=== PATIENT | male | born 1950 | race Caucasian/White ===

== ENCOUNTER 2017-04-17 20:30 | Outpatient (CLI) | payer MEDICARE | END 2017-04-17 20:31 | disposition home or self-care (01) | LOC: SLEEPLAB 20:30 | PROVIDERS: ATTEND Family Medicine | DX: G47.33 Obstructive sleep apnea (adult) (pediatric) (principal); R53.83 Other fatigue | CPT/HCPCS: 95811 ==

== ENCOUNTER 2017-07-29 12:31 | Outpatient (CLI) | payer MEDICARE | END 2017-07-29 12:32 | disposition home or self-care (01) | LOC: ULT 12:31 | PROVIDERS: ATTEND Internal Medicine | DX: G47.33 Obstructive sleep apnea (adult) (pediatric) (principal); I08.1 Rheumatic disorders of both mitral and tricuspid valves | CPT/HCPCS: 93306 ==

== ENCOUNTER 2020-02-18 07:27 | Outpatient (CLI) | payer MEDICARE, OTHER ==
[2020-02-18 11:21] LABS: INR-International Normal Ratio 0.9; Prothrombin Time 12.9 sec (12.0-14.7)
[2020-02-18 11:22] LABS: PTT 34.2 sec (22.9-36.1)
[2020-02-18 11:31] LABS: Hemoglobin 15.1 g/dL (14.0-18.0); Mean Corpuscular HGB CONC 32.7 g/dL (32.0-36.0); Mean Corpuscular Hemoglobin 29.1 pg (27.0-31.0); Mean Platelet Volume 8.1 fL (7.4-10.4); Platelet Count 216 thou/uL (130-400); Red Blood Cell (RBC) Count 5.18 mill/uL (4.70-6.10)
[2020-02-18 11:38] LABS: Anion Gap 14 mmol/L (10-20); BUN (Urea Nitrogen) 18 mg/dL (8.4-25.7); Calc. Creatinine Clearance 0 mL/min (70-130); Calcium 9.4 mg/dL (7.8-10.44); Carbon Dioxide 24 mmol/L (23-31); Chloride 103 mmol/L (98-107); Estimated GFR-MDRD 74; Glucose 137 mg/dL (80-115); Potassium 4.3 mmol/L (3.5-5.1); Sodium 137 mmol/L (136-145)
[2020-02-18 17:32] LABS: SARS-CoV-2 MS2 Positive; SARS-CoV-2 N Gene Negative; SARS-CoV-2 S Gene Negative; SARS-CoV-2 by NAA Not Detected (NotDetected); SARS-CoV-2 orf1ab Negative
--- NOTE | 2020-02-18 18:05 | EKG ---
Test Reason : PREOP Blood Pressure : / mmHG Vent. Rate : 065 BPM Atrial Rate : 065 BPM P-R Int : 166 ms QRS Dur : 094 ms QT Int : 400 ms P-R-T Axes : 059 022 046 degrees QTc Int : 416 ms Normal sinus rhythm Normal ECG Confirmed by DR. Nimo CARLTON (3) on 02/18/2020 6:04:57 PM Referred By: RADHA Confirmed By:DR. Nimo CARLTON
== END 2020-02-18 07:28 | disposition home or self-care (01) ==
LOC: LABBT 07:27
PROVIDERS: ATTEND Surgery
DX: Z01.818 Encounter for other preprocedural examination (principal); M48.062 Spinal stenosis, lumbar region with neurogenic claudication; M54.16 Radiculopathy, lumbar region; Z20.828 Contact with and (suspected) exposure to other viral communicable diseases
CPT/HCPCS: 80048; 85027; 85610; 85730; 93005; U0003; 87635; 93010

== ENCOUNTER 2020-02-23 10:01 | Day surgery (SDC) | payer MEDICARE ==
[2020-02-23] MEDS ORDERED: Thrombin 5000 UNITS/5 ML VIAL ONE ×2 (10:41→14:05)
[2020-02-23] MEDS ORDERED: Fentanyl 100 MCG/2 ML VIAL ONE ×2 (11:51→15:16)
[2020-02-23] MEDS ORDERED: Lidocaine 1% PF 5 ML VIAL ONE (12:32)
[2020-02-23] MEDS ORDERED: PROPOFOL 200 MG/20 ML VIAL ONE (12:32)
[2020-02-23] MEDS ORDERED: Rocuronium Bromide 10 MG/ML (10ML VIAL) ONE (12:32)
[2020-02-23] MEDS ORDERED: Dexamethasone 20 MG/5 ML VIAL ONE (12:32)
[2020-02-23] MEDS ORDERED: HYDROcodone/Acetaminophen 7.5/325 mg Tablet PO PRN (15:08)
[2020-02-23] MEDS ORDERED: Milk Of Magnesia 30 ML UDCUP PO PRN (15:08)
[2020-02-23] MEDS ORDERED: Morphine 2 MG/ML VIAL SLOW IVP PRN (15:08)
[2020-02-23] MEDS ORDERED: Ondansetron PF 4 MG/2 ML Vial IVP PRN (15:08)
[2020-02-23] MEDS ORDERED: Bisacodyl 10 MG SUPP PR PRN (15:08)
[2020-02-23] MEDS ORDERED: Promethazine HCl 25 MG/ML VIAL IM PRN ×2 (15:08→15:14)
[2020-02-23] MEDS ORDERED: Mag-Al 1200 mg/1200 mg/30 ML UDCUP PO PRN (15:08)
[2020-02-23] MEDS ORDERED: diphenhydrAMINE 25 MG CAP PO PRN (15:08)
[2020-02-23] MEDS ORDERED: Ondansetron HCl/PF 4 MG/2 ML Vial IVP PRN (15:14)
[2020-02-23] MEDS ORDERED: Meperidine HCl/PF 25 MG/ML VIAL SLOW IVP PRN (15:14)
[2020-02-23] MEDS ORDERED: Morphine Sulfate 2 MG/ML SYRINGE SLOW IVP PRN (15:14)
[2020-02-23] MEDS ORDERED: Ketorolac Tromethamine 30 MG/ML VIAL IVP PRN (15:14)
[2020-02-23] MEDS ORDERED: Promethazine HCl 25 MG/ML VIAL SLOW IVP PRN (15:14)
[2020-02-23] MEDS ORDERED: PACU-Morphine 4MG/ML VIAL SLOW IVP PRN (15:14)
[2020-02-23] MEDS ORDERED: HYDROmorphone 2 MG/ML VIAL SLOW IVP PRN (15:14)
[2020-02-23] MEDS ORDERED: HYDROmorphone 2 MG/ML VIAL ONE (15:36)
[2020-02-23] MEDS: tiZANidine HCl 4 MG TAB PO PRN (19:14)
[2020-02-23 20:05] VITALS: BMI 30.2
[2020-02-23] MEDS: Sodium Chloride 0.9% 1,000 ML IV SCH (20:06)
[2020-02-23] MEDS: CEFAZOLIN 2 GM in Premix Bag 1 BAG IVPB SCH (20:09)
[2020-02-23] MEDS: Gabapentin 300 MG CAP PO SCH (20:09)
[2020-02-23] MEDS: Tamsulosin HCl 0.4 MG CAP PO SCH (20:09)
[2020-02-23] MEDS ORDERED: FLU VACC QS2020-21(65YR UP)/PF 240 MCG/0.7 ML SYRINGE IM ONE (21:00)
[2020-02-24] MEDS: CEFAZOLIN 2 GM in Premix Bag 1 BAG IVPB SCH (01:18)
[2020-02-24] MEDS: Acetaminophen/Codeine 30-300mg Tablet PO PRN ×3 (01:18→20:40)
[2020-02-24] MEDS: traMADol HCl 50 MG TAB PO PRN ×2 (01:18→20:41)
[2020-02-24] MEDS: Sodium Chloride 0.9% 1,000 ML IV SCH ×2 (07:50→23:43)
[2020-02-24] MEDS: metFORMIN 500 MG TAB PO SCH ×2 (08:37→17:46)
[2020-02-24] MEDS: Cholecalciferol 1,000 UNITS (25 MCG) TAB PO SCH (08:37)
[2020-02-24 08:59] LABS: #Lymphocytes 1.6 thou/uL (1.20-3.40); #Monocytes 1.1 thou/uL (0.11-0.59); #Neutrophils 7.9 thou/uL (1.40-6.50); %Basophils 0.2 % (0.0-1.0); %Eosinophils 0.3 % (0.0-10.0); %Lymphocytes 14.6 % (21.0-51.0); %Monocytes 10.4 % (0.0-10.0); %Neutrophils 74.4 % (42.0-75.0); Hemoglobin 11.4 g/dL (14.0-18.0); Mean Corpuscular HGB CONC 33.3 g/dL (32.0-36.0); Mean Corpuscular Hemoglobin 30.2 pg (27.0-31.0); Mean Corpuscular Volume 90.6 fL (78.0-98.0); Mean Platelet Volume 7.1 fL (7.4-10.4); Platelet Count 170 thou/uL (130-400); RBC Distribution Width 11.8 % (11.5-14.5); Red Blood Cell (RBC) Count 3.76 mill/uL (4.70-6.10); White Blood Cell (WBC) Count 10.6 thou/uL (4.8-10.8)
--- NOTE | 2020-02-24 13:50 | PRG ---
DATE OF SERVICE: 02/24/2020 Mr. Downs is doing well with resolution in his leg pain. He has ambulated to his bedroom door, but has not been outside of the hospital room. He has good strength and his hemoglobin is 11. He had low blood pressure. Does respond well to fluids. We will mobilize him today and plan for discharge likely tomorrow. Job ID: [id number]
[2020-02-24] MEDS: tiZANidine HCl 4 MG TAB PO PRN (15:37)
[2020-02-24] MEDS: Acetaminophen 325 MG TAB PO PRN (16:21)
[2020-02-24] MEDS: Tamsulosin HCl 0.4 MG CAP PO SCH (20:34)
[2020-02-24] MEDS: Gabapentin 300 MG CAP PO SCH (20:34)
[2020-02-25] MEDS: traMADol HCl 50 MG TAB PO PRN (03:30)
[2020-02-25] MEDS: Acetaminophen/Codeine 30-300mg Tablet PO PRN (03:30)
--- NOTE | 2020-02-25 08:02 | OP ---
DATE OF PROCEDURE: 02/23/2020 COUPON REDEMPTION CLERK: Shirley Preston PA-C PREPROCEDURE DIAGNOSIS: Multilevel lumbar stenosis with neurogenic claudication. POSTPROCEDURE DIAGNOSIS: Multilevel lumbar stenosis with neurogenic claudication. PROCEDURES PERFORMED: 1. L1-L2, L2-L3, L3-L4, L4-L5 laminectomies, partial facetectomies, foraminotomies. 2. Left L5-S1 hemilaminotomy, foraminotomy. DESCRIPTION OF PROCEDURE: After informed consent was obtained from the patient, the patient was brought to the OR. Proper patient, pause, and identification were carried out. He was placed under excellent general endotracheal anesthesia and positioned prone on the OR table. All appropriate points were padded. We identified the L1 through S1 dorsal spines and lamina. A linear quita was made over this region. This area was sterilely cleansed, prepared, and draped. Proper patient, pause, and identification were carried out. We then performed L1 through L5 laminectomies, partial facetectomies, foraminotomies, and left L5-S1 hemilaminotomy and foraminotomy with excellent decompression of the common dural tube and nerve roots. Copious irrigation occurred throughout as did maximizing hemostasis. The wound was then closed in anatomic layers following sprinkling of vancomycin powder. The patient then emerged from anesthesia. Job ID: [id number]
[2020-02-25] MEDS: Cholecalciferol 1,000 UNITS (25 MCG) TAB PO SCH (08:11)
[2020-02-25] MEDS: Acetaminophen 325 MG TAB PO PRN ×2 (08:11→21:23)
[2020-02-25] MEDS: metFORMIN 500 MG TAB PO SCH ×2 (08:11→17:17)
--- NOTE | 2020-02-25 09:10 | PRG ---
DATE OF SERVICE: 02/25/2020 SUBJECTIVE: Mr. Downs is postoperative day #2 after L1 through L5 laminectomies, partial facetectomies, and foraminotomies, and left L5-S1 hemilaminotomy and foraminotomy. The patient continues to endorse low back pain and spasm, however he states that he was able to rest more last night and is more comfortable than yesterday. He reports improvement in his lower extremity paresthesias, however these remain present to some degree. He denies sharp or shooting pains into either of his legs when lying at rest. He states that he did not notice any sharp pains into his legs yesterday when walking. However, he only ambulated twice yesterday. He states that he would prefer to have one more day in the hospital for pain control and mobilization. The patient is awake, alert, and appropriate. He is lying in bed, in no apparent distress. He demonstrates full strength throughout his bilateral lower extremity myotomes. I have ordered a physical therapy to see the patient today for further mobilization prior to going home. Perhaps they can provide recommendations for positional changes to minimize the patient's pain in the back with movement. The patient has a low-grade temperature of 100.5 degrees Fahrenheit. Discussed with the patient that this is likely postoperative atelectasis associated with lungs not fully expanding on a ventilator during surgery. We will continue to monitor for increase in fever, and the patient will receive Tylenol or Tylenol No. 3 to help reduce his temperature. Our team will re-evaluate the patient in the morning. Please call for any neurologic changes or other concerns. Job ID: [id number] MTDD
[2020-02-25] MEDS: Sodium Chloride 0.9% 1,000 ML IV SCH (10:30)
[2020-02-25] MEDS: Gabapentin 300 MG CAP PO SCH (21:23)
[2020-02-25] MEDS: Tamsulosin HCl 0.4 MG CAP PO SCH (21:23)
[2020-02-26] MEDS: Sodium Chloride 0.9% 1,000 ML IV SCH ×2 (01:14→15:11)
[2020-02-26 07:54] VITALS: BP 138/81; TEMP 100
[2020-02-26] MEDS: Cholecalciferol 1,000 UNITS (25 MCG) TAB PO SCH (08:15)
[2020-02-26] MEDS: metFORMIN 500 MG TAB PO SCH (08:15)
--- NOTE | 2020-02-26 10:20 | PRG ---
DATE OF SERVICE: 02/26/2020 Mr. Downs is doing well. He did have a bowel movement. He is mobilizing. We will plan discharge. Job ID: [id number]
[2020-02-26] MEDS: Acetaminophen/Codeine 30-300mg Tablet PO PRN (15:08)
== END 2020-02-26 16:20 | disposition home or self-care (01) ==
LOC: SDC 10:01 → SURG A 15:08 → SDC 02-26 16:20
PROVIDERS: ATTEND Surgery
PROC: 01NB0ZZ Release Lumbar Nerve, Open Approach (ICD-10-PCS; principal; 2020-02-23)
DX: M48.062 Spinal stenosis, lumbar region with neurogenic claudication (principal); M54.16 Radiculopathy, lumbar region; G47.30 Sleep apnea, unspecified; E11.9 Type 2 diabetes mellitus without complications; M19.90 Unspecified osteoarthritis, unspecified site; N40.0 Benign prostatic hyperplasia without lower urinary tract symptoms; Z79.84 Long term (current) use of oral hypoglycemic drugs; Z79.899 Other long term (current) drug therapy
CPT/HCPCS: 36415; 76000; 85025; J0690; J1100; J1170; J2405; J2704; J3010; J3370

== ENCOUNTER 2020-03-21 10:31 | Outpatient (CLI) | payer MEDICARE ==
--- NOTE | 2020-03-21 12:25 | MRI ---
MRI cervical spine noncontrast: 03/21/2020 HISTORY: 69-year-old male with cervicalgia M 54.2, and cervical radiculopathy M 54.12 FINDINGS: Vertebral body heights are maintained. No severe disc space narrowing at any level. Cervical spinal c ord is normal in size and signal. Cervical spinal canal is diffusely small in caliber on a congenital basis due to developmentally short pedicles. This is exacerbated by spondylosis as describ ed below. No major bone marrow signal abnormality. C1-2: No high-grade central spinal canal stenosis. C2-3: Moderate central spinal canal stenosis almost entirely on developmental basis. Moderate right a nd moderate to severe left facet DJD. No significant neural foraminal stenosis. C3-4: Small, shallow central and bilateral paracentral disc protrusion or disc-osteophyte complex exa cerbates the developmentally small caliber spinal canal. Mild to moderate central spinal canal stenosis. Small bilateral uncinate process osteophytes. Ankylosis and bony hypertrophy of right facet joint. Moderate to severe left facet DJD. Moderate-severe bilateral neural foraminal stenosis. C4-5: Shallow broad-based disc protrusion or disc-osteophyte complex. Small to moderate-sized right a nd small left uncinate process osteophytes. Severe right facet DJD hypertrophy. Mild left facet DJD. Severe right neural foraminal stenosis. Mild left neural foraminal stenosis. Moderate central sp inal canal stenosis. C5-6: Ligamentum flavum thickening abuts dorsal surface of spinal cord. Slight retrolisthesis of C5 o n C6, together with central and bilateral paracentral disc protrusion or disc-osteophyte complex, indents the spinal cord, causing severe central spinal canal stenosis, with effacement of CSF signal. Moderate to large bilateral uncinate process osteophytes cause severe right neural foraminal stenosis and moderate to severe left neural foraminal stenosis. Mild bilateral facet DJD. C6-7: Central and bilateral paracentral disc protrusion or disc-osteophyte complex indents ventral adame rface of spinal cord. Thickened ligamentum flavum abuts the dorsal surface of spinal cord. Severe central spinal canal stenosis with effacement of CSF signal. Large bilateral uncinate process osteoph ytes cause severe bilateral neural foraminal stenosis. Mild right and moderate left facet DJD. C7-T1: Moderate right and moderate to severe left facet DJD causes mild grade 1 anterolisthesis of C7 on T1. Shallow broad-based disc protrusion or disc-osteophyte complex. Moderate bilateral neural foraminal stenosis. IMPRESSION: 1.) Cervical spondylosis exacerbating a developmentally small caliber spinal canal. 2) severe central spinal canal stenosis and severe neural foraminal stenosis at C5-6 and C6-7. 3) other levels of severe neural foraminal stenosis.
--- NOTE | 2020-03-21 13:43 | RAD ---
Exam: Cervical spine 6 views HISTORY: Neck stiffness with limited range of motion. FINDINGS: On the AP projection, there is right greater than left facet arthropathy at C2-C3, C3-C4, C4-C5 and C 5-C6. No malalignment or fracture. On the open-mouth projection, lateral masses of C1 and C2 articulate appropriately. Intact odontoid process. Predental space is normal. No prevertebral soft tissue swelling. Moderate degenerative disc disease at C5-C6 and C6-C7 with loss of disc space height and osteophyte f ormation. Spondylolisthesis: C4-C5: Neutral 2.9 mm of anterolisthesis; flexion 3.9 mm of anterolisthesis; extension 2.2 mm of ante rolisthesis. Swimmer's view demonstrates limited evaluation of the cervicothoracic junction. IMPRESSION: 1. Moderate degenerative disc disease at C5-C6 and C6-C7. 2. Spondylolisthesis at C4-C5 as detailed above. Transcribed Date/Time: 03/21/2020 1:58 PM
== END 2020-03-21 10:32 | disposition home or self-care (01) ==
LOC: BICMRI 10:31
PROVIDERS: ATTEND Surgery
DX: M47.22 Other spondylosis with radiculopathy, cervical region (principal); M50.122 Cervical disc disorder at C5-C6 level with radiculopathy; M43.12 Spondylolisthesis, cervical region; M48.02 Spinal stenosis, cervical region
CPT/HCPCS: 72040; 72141

== ENCOUNTER 2020-04-06 08:57 | Outpatient (CLI) | payer MEDICARE ==
[2020-04-06 09:31] LABS: Estimated GFR-MDRD - POC Greater than 90
--- NOTE | 2020-04-06 10:13 | CT ---
EXAM: CT Abdomen Pelvis W WO con PROVIDED CLINICAL HISTORY: Malignant neoplasm of prostate COMPARISON: None FINDINGS: The visualized lung bases are free of significant opacity. 1.9 cm hamartoma is demonstrated at the ri t lung base. No evidence for urinary tract calculi or hydronephrosis. No evidence for solid renal mass. Subcentime ter renal hypodensities, statistically cysts but too small to definitively characterize. The delayed images demonstrate no evidence for filling defect involving the renal collecting systems, ure ters or urinary bladder. The liver, spleen, pancreas and adrenal glands appear unremarkable. There is no bowel dilatation, inf lammatory fat stranding, free fluid or lymph node enlargement apparent. Colonic diverticulosis is demonstrated without CT evidence for diverticulitis. Scattered atherosclerotic vascular calcifications are seen. Postoperative changes are seen involving the lumbar spine. Nonspecific obscuration of intermuscular a nd intramuscular fat involving the posterior paravertebral muscles. No concerning osteoblastic or osteolytic lesions are evident. Remote superior endplate compression fracture is noted involving supe rior endplate of L3. Nondisplaced spinous process fracture is seen involving L1. IMPRESSION: No CT evidence for metastatic disease.
--- NOTE | 2020-04-06 14:22 | NM ---
NUCLEAR MEDICINE BONE SCAN WHOLE BODY: (Skeletal scintigraphy) DATE: 04/06/2020 HISTORY: 69-year-old male with malignant neoplasm of prostate and elevated PSA. TECHNIQUE: IV injection of technetium 99m-MDP: 33.0 mCi 3 hour delayed whole body skeletal scintigraphy in anterior and posterior views. FINDINGS: There is bilaterally increased uptake of radiopharmaceutical in the major joints and the spine, consi stent with degenerative changes. This includes high-grade bilateral facet DJD throughout the lumbar spine. Long photopenic defect from L1-2 through L5-S1. Single midline focus of increased uptake at L1 posteriorly. Review of CT of abdomen and pelvis from today demonstrates a nondisplaced fracture of the L1 spinous process, with callus but without union, that corresponds to this. Increased uptake at the left sternoclavicular joint consistent with arthrosis. Otherwise, there are no foci of asymmetrically increased uptake that are particularly suspicious for bone metastases. IMPRESSION: 1. Osteoarthrosis and spondylosis. 2. Status post laminectomies throughout almost the entire lumbar spine. 3. Nonacute, nonunited fracture of spinous process of L1. 4 No compelling evidence of skeletal metastasis.
== END 2020-04-06 08:58 | disposition home or self-care (01) ==
LOC: CT 08:57
PROVIDERS: ATTEND Urology
DX: C61 Malignant neoplasm of prostate (principal); M47.816 Spondylosis without myelopathy or radiculopathy, lumbar region; S32.019A Unspecified fracture of first lumbar vertebra, initial encounter for closed fracture; Z98.890 Other specified postprocedural states
CPT/HCPCS: 74178; 78306; 82565; A9503

== ENCOUNTER 2020-04-11 06:37 | Outpatient (CLI) | payer MEDICARE ==
[2020-04-11 10:54] LABS: Bilirubin Neg (Negative); Blood, Urine 50 (Negative); Clarity Clear (Clear); Glucose, Urine (Dipstick) Normal (Negative); Ketone, Urine Negative (Negative); Leukocyte Negative (Negative); Nitrite Negative (Negative); Protein, Urine (Dipstick) 30 mg/dl (Neg-Trace); Specific Gravity, Urine 1.015 (1.002-1.036); Urobilinogen Normal mg/dL (Less than 2)
[2020-04-11 11:03] LABS: Hemoglobin 13.4 g/dL (14.0-18.0); Mean Corpuscular HGB CONC 32.3 G/DL (32.0-36.0); Mean Corpuscular Hemoglobin 28.1 PG (27.0-33.0); Mean Platelet Volume 9.7 fl (7.4-10.4); Platelet Count 255 10x3/uL (130-400); RBC Distribution Width 13.3 % (11.5-14.5); Red Blood Cell (RBC) Count 4.77 10x6/uL (4.40-5.80); White Blood Cell (WBC) Count 6.1 10x3/uL (4.5-11.0)
[2020-04-11 11:18] LABS: Bacteria/HPF None Seen HPF (None Seen); Squamous Epithelial None Seen HPF (0-3); WBC/HPF None Seen HPF (0-3)
[2020-04-11 11:30] LABS: Anion Gap 16 mmol/L (10-20); BUN (Urea Nitrogen) 21 mg/dL (8.4-25.7); Calc. Creatinine Clearance 0 mL/min (70-130); Carbon Dioxide 23 mmol/L (23-31); Chloride 105 mmol/L (98-107); Estimated GFR-MDRD 79; Glucose 100 mg/dL (80-115); Potassium 4.7 mmol/L (3.5-5.1); Sodium 139 mmol/L (136-145)
--- NOTE | 2020-04-11 16:57 | EKG ---
Test Reason : Blood Pressure : / mmHG Vent. Rate : 059 BPM Atrial Rate : 059 BPM P-R Int : 166 ms QRS Dur : 102 ms QT Int : 438 ms P-R-T Axes : 052 026 034 degrees QTc Int : 433 ms Sinus bradycardia Otherwise normal ECG When compared with ECG of 18-FEB-2020 08:46, No significant change was found Confirmed by DR. Nimo CARLTON (3) on 04/11/2020 4:57:05 PM Referred By: QUYNH Confirmed By:DR. Nimo CARLTON
[2020-04-11 19:13] LABS: SARS-CoV-2 MS2 Positive; SARS-CoV-2 N Gene Negative; SARS-CoV-2 S Gene Negative; SARS-CoV-2 by NAA Not Detected (NotDetected); SARS-CoV-2 orf1ab Negative
== END 2020-04-11 06:38 | disposition home or self-care (01) ==
LOC: LABBT 06:37
PROVIDERS: ATTEND Urology
DX: Z01.818 Encounter for other preprocedural examination (principal); N40.1 Benign prostatic hyperplasia with lower urinary tract symptoms; Z20.828 Contact with and (suspected) exposure to other viral communicable diseases
CPT/HCPCS: 80048; 81001; 85027; 87086; 93005; U0003; 87635; 93010

== ENCOUNTER 2020-04-15 06:15 | Day surgery (SDC) | payer MEDICARE ==
[2020-04-14 11:25] VITALS: BMI 30.7
[2020-04-15] MEDS ORDERED: Levofloxacin 500 mg/D5W 100 ml Premix Bag ONE (07:39)
[2020-04-15] MEDS ORDERED: Midazolam HCl 2 mg/2 ml Vial ONE (08:23)
[2020-04-15] MEDS ORDERED: Fentanyl 100 MCG/2 ML VIAL ONE (08:24)
--- NOTE | 2020-04-15 09:24 | OP ---
DATE OF PROCEDURE: 04/15/2020 PREOPERATIVE DIAGNOSIS: Enlarged prostate with lower urinary tract symptoms. POSTOPERATIVE DIAGNOSIS: Enlarged prostate with lower urinary tract symptoms. PROCEDURES PERFORMED: Cystoscopy with UroLift. ANESTHESIA: TIVA. COMPLICATIONS: None. BLOOD LOSS: None. SPECIMEN: None. DESCRIPTION OF PROCEDURE: After informed consent, the patient was taken to the operating room, transferred to the table under his own power. Anesthesia was established. A time-out was performed ensuring the correct patient, site, and procedure. Preoperative antibiotics were administered. He was prepped and draped in the lithotomy position. The rigid cystoscope was advanced through the urethra, noting a normal course and caliber of the urethra into the prostate noting large coapting lateral lobes. The bladder was entered and systematically examined, noting [id number] trabeculation without mucosal abnormalities. Both ureters were normal in appearance. The UroLift device was inserted and the first implant deployed at the left side of the bladder neck, about 2 cm distal to the bladder neck. The same procedure was repeated on the right side, where we encountered a bone strike and pull-through. The next implant was successful at that location. He required two further implants in the distal prostate, near the verumontanum. At this point, he had an excellent anterior channel with no residual obstruction. The bladder was drained and refilled with about 150 mL of saline to allow for void trial in recovery. He was awoken from anesthesia, transferred back to his hospital bed, and taken to PACU in stable condition, where he will discharge home upon recovery. Job ID: [id number]
[2020-04-15] MEDS ORDERED: Ketorolac Tromethamine 30 MG/ML VIAL ONE (09:41)
[2020-04-15] MEDS ORDERED: Oxybutynin 5 MG TAB ONE (09:41)
[2020-04-15] MEDS ORDERED: Phenazopyridine HCl 100 MG TAB ONE (09:42)
[2020-04-15] MEDS ORDERED: PROPOFOL 200 MG/20 ML VIAL ONE (10:38)
== END 2020-04-15 11:12 | disposition home or self-care (01) ==
LOC: SDC 06:15
PROVIDERS: ATTEND Urology
PROC: 0T7D8DZ Dilation of Urethra with Intraluminal Device, Via Natural or Artificial Opening Endoscopic (ICD-10-PCS; principal; 2020-04-15)
DX: N40.1 Benign prostatic hyperplasia with lower urinary tract symptoms (principal); R35.0 Frequency of micturition; R39.12 Poor urinary stream; N39.41 Urge incontinence; R39.14 Feeling of incomplete bladder emptying; N32.89 Other specified disorders of bladder; E29.1 Testicular hypofunction; N52.01 Erectile dysfunction due to arterial insufficiency; Z79.84 Long term (current) use of oral hypoglycemic drugs; Z79.899 Other long term (current) drug therapy
CPT/HCPCS: C1889; C9740; J1885; J1956; J2250; J2704; J3010

== ENCOUNTER 2020-04-28 10:49 | Outpatient (CLI) | payer MEDICARE ==
[2020-04-28] MEDS ORDERED: Iopamidol-370 76% 500 ML 1 ML ONE (11:22)
--- NOTE | 2020-04-28 11:49 | CT ---
CT ABDOMEN AND PELVIS WITH IV CONTRAST 04/28/2020 CLINICAL INFORMATION: Malignant return for a prostate gland. History of urolithiasis procedure 3 weeks ago COMPARISON: 04/06/2020 Technique: Multiple contiguous axial CT images are obtained through the abdomen and pelvis with IV contrast. Cor onal reformatted images are provided. FINDINGS: Lower Chest: Partially calcified lesion posterior right lung base is again seen probably due to hamar clara. Lung bases otherwise appear clear. Vessels: Vascular calcifications in the abdominal aorta and iliac arteries. Abdomen: Portal vein:Patent Gallbladder: Normal CT appearance. Liver: A subcentimeter too small to characterize hypodense lesion is seen in the lateral segment left hepatic lobe as well as in the anterior segment right hepatic lobe. Spleen: within normal limits. Pancreas: within normal limits. Adrenals: within normal limits. Kidneys: within normal limits. Bowel: Colonic diverticulosis. Appendix: The appendix is visualized and normal in caliber. Peritoneum: No ascites or free air; no fluid collection. Mesentery and Retroperitoneum: No enlarged mesenteric or retroperitoneal lymph nodes. Abdominal Wall: within normal limits. Pelvis: Reproductive Organs: Radiotherapy seeds are now seen in the prostate gland. Bladder: within normal limits. Bones: Remote superior endplate compression fracture L3 vertebral body is again seen with evidence of a healing L1 spinous process fracture.. Degenerative changes are seen in the spine. Laminectomy defects are again seen extending from the L1-2 to the L5-S1 levels with diminished attenuation/fluid collection seen posterior to the thecal sac at levels of laminectomy defect which was also present on the prior exam and may be related to postoperative changes. Infection cannot be excluded based on CT evaluation, but there is no gas seen in the region of the collection posterior to the lumbar spine at these levels. Obscuration of intramuscular and intermuscular fat involving the posterior par avertebral musculature is again noted. IMPRESSION: 1. No CT findings to suggest metastatic disease. 2. Interval placement of radiotherapy seeds in the prostate gland. 3. Postoperative changes lumbar spine with fluid collection seen posterior to thecal sac in the regio n of laminectomy defects. This is overall unchanged and may be related to postoperative changes. 4. Additional stable findings as above.
== END 2020-04-28 10:50 | disposition home or self-care (01) ==
LOC: BICCT 10:49
PROVIDERS: ATTEND Urology
DX: C61 Malignant neoplasm of prostate (principal); N40.2 Nodular prostate without lower urinary tract symptoms; Z98.890 Other specified postprocedural states; K76.89 Other specified diseases of liver; K57.30 Diverticulosis of large intestine without perforation or abscess without bleeding
CPT/HCPCS: 74177; Q9967

== ENCOUNTER 2022-12-09 09:16 | Observation (INO) | payer MEDICARE ==
[2022-12-09 09:55] LABS: #Eosinphils 0.3 thou/uL (0.0-0.7); #Monocytes 0.3 thou/uL (0.11-0.59); %Basophils 0.9 % (0.0-1.0); %Eosinophils 5.6 % (0.0-10.0); %Monocytes 6.9 % (0.0-10.0); %Neutrophils 64.7 % (42.0-75.0); Hemoglobin 13.4 g/dL (14.0-18.0); Mean Corpuscular HGB CONC 33.8 g/dL (32.0-36.0); Mean Corpuscular Hemoglobin 29.5 pg (27.0-31.0); Mean Corpuscular Volume 87.2 fl (78.0-98.0); Mean Platelet Volume 9.4 fL (7.4-10.4); Platelet Count 234 10x3/uL (130-400); RBC Distribution Width 13.6 % (11.5-14.5); Red Blood Cell (RBC) Count 4.54 mill/uL (4.70-6.10); White Blood Cell (WBC) Count 4.7 10x3/uL (4.8-10.8)
[2022-12-09 10:15] LABS: PTT 31.2 sec (22.9-36.1); Prothrombin Time 13.4 sec (12.0-14.7)
[2022-12-09 10:18] LABS: ALT (SGPT) 16 U/L (8-55); AST (SGOT) 17 U/L (5-34); Albumin 4.4 g/dL (3.4-4.8); Alkaline Phosphatase 87 U/L (40-110); Anion Gap 13 mmol/L (10-20); BUN (Urea Nitrogen) 20 mg/dL (8.4-25.7); Bilirubin, Total 0.3 mg/dL (0.2-1.2); CK (CPK) 162 U/L (30-200); Calc. Creatinine Clearance 0 mL/min (70-130); Calcium 9.4 mg/dL (7.8-10.44); Carbon Dioxide 27 mmol/L (23-31); Chloride 104 mmol/L (98-107); Estimated GFR 95; Globulin 2.6 g/dL (2.4-3.5); Glucose 179 mg/dL (80-115); Potassium 4.1 mmol/L (3.5-5.1); Sodium 140 mmol/L (136-145)
[2022-12-09] MEDS ORDERED: HYDROcodone/Acetaminophen 5/325 mg Tablet ONE (11:02)
[2022-12-09] MEDS ORDERED: ANTIVENIN,CROTALIDAE (ANAVIP) 10 EACH in Sodium Chloride 0.9% 250 ML 250 ML IVPB SCH (13:00)
[2022-12-09] MEDS ORDERED: HYDROcodone/Acetaminophen 5/325 mg Tablet PO PRN ×2 (13:39)
[2022-12-09] MEDS ORDERED: Ondansetron PF 4 MG/2 ML Vial IVP PRN (13:39)
[2022-12-09] MEDS ORDERED: Acetaminophen 325 MG TAB PO PRN (13:39)
[2022-12-09] MEDS ORDERED: HumaLOG 300 UNITS/3 ML VIAL SC PRN (13:49)
[2022-12-09] MEDS ORDERED: Dextrose 5% in Water 1,000 ML IV PRN (13:49)
[2022-12-09] MEDS ORDERED: Dextrose 50% Abboject 50 ML SYRINGE SLOW IVP PRN (13:49)
[2022-12-09] MEDS ORDERED: Glucagon 1 MG/ML KIT IM PRN (13:49)
[2022-12-09] MEDS ORDERED: HYDROmorphone 0.5 MG/0.5 ML SYRINGE SLOW IVP SCH (14:00)
[2022-12-09] MEDS ORDERED: diphenhydrAMINE 50 MG/ML VIAL ONE (14:21)
[2022-12-09] MEDS ORDERED: Dexamethasone 10 MG/ML VIAL ONE (14:21)
[2022-12-09] MEDS ORDERED: Famotidine/PF 20 mg/2ml Vial ONE (14:21)
[2022-12-09] MEDS ORDERED: HYDROmorphone 0.5 MG/0.5 ML SYRINGE ONE (14:28)
[2022-12-09] MEDS ORDERED: Boostrix 0.5 ML (Tdap) VIAL (>/=7 yrs of age) ONE (14:36)
[2022-12-09 17:07] VITALS: BMI 31.4
[2022-12-09] MEDS ORDERED: Cholecalciferol 1,000 UNITS (25 MCG) TAB PO SCH (18:00)
[2022-12-09 20:21] LABS: #Monocytes 0.1 thou/uL (0.11-0.59); %Basophils 0.2 % (0.0-1.0); %Eosinophils 0.1 % (0.0-10.0); %Lymphocytes 5.4 % (21.0-51.0); %Monocytes 1.4 % (0.0-10.0); %Neutrophils 92.3 % (42.0-75.0); Hemoglobin 13.5 g/dL (14.0-18.0); Mean Corpuscular HGB CONC 33.2 g/dL (32.0-36.0); Mean Corpuscular Hemoglobin 29.4 pg (27.0-31.0); Mean Corpuscular Volume 88.7 fl (78.0-98.0); Mean Platelet Volume 9.4 fL (7.4-10.4); Platelet Count 229 10x3/uL (130-400); RBC Distribution Width 13.9 % (11.5-14.5); Red Blood Cell (RBC) Count 4.59 mill/uL (4.70-6.10); White Blood Cell (WBC) Count 8.7 10x3/uL (4.8-10.8)
[2022-12-09] MEDS: metFORMIN 500 MG TAB PO SCH (20:22)
[2022-12-09] MEDS: Gabapentin 300 MG CAP PO SCH (20:22)
[2022-12-09 20:42] LABS: PTT 29.5 sec (22.9-36.1); Prothrombin Time 13.8 sec (12.0-14.7)
[2022-12-09 20:50] LABS: ALT (SGPT) 14 U/L (8-55); AST (SGOT) 20 U/L (5-34); Albumin 4.1 g/dL (3.4-4.8); Alkaline Phosphatase 83 U/L (40-110); Anion Gap 15 mmol/L (10-20); BUN (Urea Nitrogen) 21 mg/dL (8.4-25.7); Bilirubin, Total 0.2 mg/dL (0.2-1.2); Calc. Creatinine Clearance 103 mL/min (70-130); Calcium 9.3 mg/dL (7.8-10.44); Carbon Dioxide 21 mmol/L (23-31); Chloride 101 mmol/L (98-107); Estimated GFR 85; Globulin 2.8 g/dL (2.4-3.5); Glucose 304 mg/dL (80-115); Potassium 4.8 mmol/L (3.5-5.1); Protein, Total 6.9 g/dL (5.8-8.1); Sodium 132 mmol/L (136-145)
[2022-12-10 06:26] LABS: #Monocytes 0.5 thou/uL (0.11-0.59); #Neutrophils 9.8 thou/uL (1.40-6.50); %Basophils 0.1 % (0.0-1.0); %Lymphocytes 7.3 % (21.0-51.0); %Monocytes 4.7 % (0.0-10.0); %Neutrophils 87.5 % (42.0-75.0); Mean Corpuscular HGB CONC 33.5 g/dL (32.0-36.0); Mean Corpuscular Hemoglobin 29.5 pg (27.0-31.0); Mean Corpuscular Volume 88.2 fl (78.0-98.0); Mean Platelet Volume 9.3 fL (7.4-10.4); Platelet Count 238 10x3/uL (130-400); RBC Distribution Width 13.8 % (11.5-14.5); White Blood Cell (WBC) Count 11.2 10x3/uL (4.8-10.8)
[2022-12-10 06:39] LABS: INR-International Normal Ratio 1.1; Prothrombin Time 14.1 sec (12.0-14.7)
[2022-12-10 06:40] LABS: PTT 29.2 sec (22.9-36.1)
[2022-12-10 06:52] LABS: ALT (SGPT) 12 U/L (8-55); AST (SGOT) 15 U/L (5-34); Albumin 3.8 g/dL (3.4-4.8); Alkaline Phosphatase 73 U/L (40-110); Anion Gap 19 mmol/L (10-20); BUN (Urea Nitrogen) 21 mg/dL (8.4-25.7); Bilirubin, Total 0.2 mg/dL (0.2-1.2); Calc. Creatinine Clearance 120 mL/min (70-130); Calcium 9.3 mg/dL (7.8-10.44); Carbon Dioxide 20 mmol/L (23-31); Chloride 101 mmol/L (98-107); Estimated GFR 94; Globulin 2.7 g/dL (2.4-3.5); Glucose 168 mg/dL (80-115); Potassium 4.5 mmol/L (3.5-5.1); Protein, Total 6.5 g/dL (5.8-8.1); Sodium 135 mmol/L (136-145)
[2022-12-10] MEDS: metFORMIN 500 MG TAB PO SCH (08:15)
[2022-12-10] MEDS: Gabapentin 300 MG CAP PO SCH (08:16)
[2022-12-10] MEDS ORDERED: pyridOXINE 50 MG (B6) TAB PO SCH (09:00)
[2022-12-10] MEDS ORDERED: Cholecalciferol 1,000 UNITS (25 MCG) TAB PO SCH (09:00)
[2022-12-10 12:09] VITALS: BP 109/66; TEMP 97.6
== END 2022-12-10 13:33 | disposition home or self-care (01) ==
LOC: ERS 09:16 → ERHOLD 12:38 → T4-B 16:34
PROVIDERS: ADMIT Internal Medicine; ATTEND Internal Medicine
DX: T63.091A Toxic effect of venom of other snake, accidental (unintentional), initial encounter (principal); E11.9 Type 2 diabetes mellitus without complications; E78.5 Hyperlipidemia, unspecified; E87.1 Hypo-osmolality and hyponatremia; D64.9 Anemia, unspecified; E66.9 Obesity, unspecified; Z68.31 Body mass index [BMI] 31.0-31.9, adult; Z88.8 Allergy status to other drugs, medicaments and biological substances; Z79.84 Long term (current) use of oral hypoglycemic drugs; Z79.899 Other long term (current) drug therapy
CPT/HCPCS: 80053 ×3; 82550; 82962 ×2; 85025 ×3; 85384 ×2; 85610 ×3; 85730 ×3; 90715; G0378 ×3; J0841; 36415; 36416; 90471; 96365; 96375; J1100; J1170; J1200; J7050; S0028

== ENCOUNTER 2024-04-15 10:01 | Outpatient (CLI) | payer MEDICARE | END 2024-04-15 10:02 | disposition home or self-care (01) | LOC: BICRAD 10:01 | PROVIDERS: ATTEND Family Medicine | DX: M25.511 Pain in right shoulder (principal); M19.011 Primary osteoarthritis, right shoulder ==